=== PATIENT | male | born 1960 | race African-American/Black ===

== ENCOUNTER 2017-03-14 10:06 | Inpatient (IN) | END 2017-03-16 10:51 | disposition home or self-care (01) | DRG 473 ==

== ENCOUNTER 2017-08-18 18:51 | Emergency (ER) | END 2017-08-18 23:27 | disposition home or self-care (01) ==

== ENCOUNTER 2017-09-30 09:44 | Inpatient (IN) | END 2017-10-02 14:52 | disposition home or self-care (01) | DRG 419 ==

== ENCOUNTER 2018-02-22 19:40 | Emergency (ER) | END 2018-02-22 21:30 | disposition home or self-care (01) ==